=== PATIENT | male | born 1950 | race Caucasian/White ===

== ENCOUNTER → 2016-10-31 | Outpatient (CLI) | payer MEDICARE, OTHER ==
[~2016-10-31] MED LIST: AMLO5TAB2 PO; ASPI81TA2 PO; CITA20TA9 PO; DIPH25CA84 PO; IBUP200C62 PO; LORA-358 PO; METO25TA6 PO; PRAV40TA3 PO; ROPI1TAB12 PO
[2016-10-31 11:19] LABS: BASOPHILS # (AUTO) 0.1 T/MM3 (0-0.2); BASOPHILS % (AUTO) 0.8 % (0-2); EOSINOPHILS # (AUTO) 0.9 T/MM3 (0-0.5); EOSINOPHILS % (AUTO) 8.4 % (0-4); HCT - HEMATOCRIT 43.4 % (41-53); HGB - HEMOGLOBIN 14.6 GM/DL (13.5-17.5); IMMATURE GRANULOCYTE # (AUTO) 0.05 T/MM3 (0.00-0.03); IMMATURE GRANULOCYTE % (AUTO) 0.5 % (0.0-0.5); LYMPHOCYTES # (AUTO) 2.4 T/MM3 (1-4.8); LYMPHOCYTES % (AUTO) 22.9 % (23-45); MEAN CORPUSCULAR HGB 29.8 UUG (26-34); MEAN CORPUSCULAR HGB CONC(MCHC 33.6 GM/DL (31-37); MEAN CORPUSCULAR VOLUME 88.6 UM3 (80-100); MEAN PLATELET VOLUME 9.3 UM3 (9.4-12.4); MONOCYTES # (AUTO) 0.7 T/MM3 (0-0.8); MONOCYTES % (AUTO) 6.8 % (0-9.0); NEUTROPHILS #(AUTO)-ABSOLUTE 6.3 T/MM3 (1.8-7.7); NEUTROPHILS % (AUTO) 60.6 % (33-66); WBC - WHITE BLOOD COUNT 10.4 T/MM3 (4.5-11.0)
[2016-10-31 11:29] LABS: ALBUMIN 4.2 G/DL (3.5-5.0); ALBUMIN/GLOBULIN RATIO 1.4 RATIO (1.1-2.2); ALKALINE PHOSPHATASE 77 U/L (38-126); ALT (SGPT) 38 U/L (21-72); ANION GAP 11 MEQ/L (5-15); AST (SGOT) 27 U/L (17-59); BUN/CREATININE RATIO 31 RATIO (6-26); CALCIUM 9.5 MG/DL (8.4-10.2); CHLORIDE 104 MEQ/L (98-107); CO2 - CARBON DIOXIDE 30 MEQ/L (22-30); CREATININE 0.8 MG/DL (0.8-1.5); GLOMERULAR FILTRATION RATE 97; GLUCOSE 114 MG/DL (75-110); POTASSIUM 4.6 MEQ/L (3.6-5); SODIUM 145 MEQ/L (134-144); TOTAL PROTEIN 7.1 G/DL (6.3-8.2)
[2016-10-31 11:39] LABS: PROBNP 457 PG/ML (0-175)
== END ==
LOC: LAB 10:44
PROVIDERS: ATTEND Family Medicine
DX: R60.9 Edema, unspecified (principal); Z01.818 Encounter for other preprocedural examination
CPT/HCPCS: 36415; 80053; 83880; 85025

== ENCOUNTER → 2016-11-06 | Outpatient (CLI) | payer MEDICARE, OTHER ==
[~2016-11-06] MED LIST changes: +ACET-2321 PO; +ACET1TAB23 PO; +FURO-154 PO
[2016-11-06 13:30] LABS: ANION GAP 13 MEQ/L (5-15); BUN/CREATININE RATIO 26 RATIO (6-26); CALCIUM 9.8 MG/DL (8.4-10.2); CHLORIDE 102 MEQ/L (98-107); CO2 - CARBON DIOXIDE 29 MEQ/L (22-30); CREATININE 0.9 MG/DL (0.8-1.5); GLOMERULAR FILTRATION RATE 84; GLUCOSE 115 MG/DL (75-110); POTASSIUM 4.4 MEQ/L (3.6-5); SODIUM 144 MEQ/L (134-144)
--- NOTE | 2016-11-09 08:22 | ECHOF ---
DATE OF PROCEDURE: 11/06/2016 ECHOCARDIOGRAM 2-D, M-mode, color-flow and Doppler echocardiographic examinations are performed on this patient. The left atrium is normal in size. The left ventricle is mildly enlarged. The left ventricle including the septum moves appropriately during systole and diastole. Overall ejection fraction is 58%. The mitral valve opens appropriately and does not evidence stenosis or prolapse. There is calcific disease of the annulus noted. There is mild mitral regurgitation. The aortic valve is prosthetic. The mean gradient is 19. The peak gradient is 32. The tricuspid and pulmonic valves appear normal. There is moderate pulmonic insufficiency and moderate-plus tricuspid regurgitation. Pulmonary artery pressures are elevated at 52 mmHg. IVC is plethoric. The right atrium and right ventricle, including inflow and outflow tracts, show right atrial enlargement. The right ventricle is mildly enlarged. The aortic root appears normal. No vegetations are seen on any valve. No intracavitary masses or thrombi are noted. There is no pericardial effusion. CONCLUSION 1. Prosthetic aortic valve. Peak gradient 32, performing well. 2. Pulmonary hypertension, moderate at 52 mmHg. This is new. 3. Left ventricular enlargement with normal LV function at 58%. 4. Right atrial enlargement. 5. Moderate pulmonic insufficiency. 6. Moderate tricuspid regurgitation to moderate-plus. MTDD
== END ==
LOC: IMA 12:59
PROVIDERS: ATTEND Family Medicine
DX: I07.1 Rheumatic tricuspid insufficiency (principal); I27.2 Other secondary pulmonary hypertension; R60.9 Edema, unspecified; R60.0 Localized edema
CPT/HCPCS: 36415; 80048; 93306

== ENCOUNTER → 2016-11-08 | Outpatient (CLI) | payer MEDICARE, OTHER ==
[~2016-11-08] MED LIST changes: +ACET1TAB25 PO; +ASPI-917 PO; +IOHEXOL 350 MG/ML 75ml INJECTION ONE; +NORMAL SALINE 100 ML ONE; +POLY17PO18 PO; +SALINE FLUSH 10ml SYRINGE ONE
--- NOTE | 2016-11-08 16:07 | DI ---
Indication: ITS.REASON: I27.2 PULMONARY ARTERIAL HYPERTENSION PROCEDURE: CTA PULMONARY EMBOLI: Encounter: Initial Comparison: CT angiogram of the chest dated July 10, 2014 Technique: Axial CT pulmonary angiographic phase images were performed through the chest after the administration of intravenous contrast. Coronal and Sagittal MIP reconstructed images were created and reviewed. Automated Exposure Control and Iterative Reconstruction dose reducing techniques were utilized. Contrast: Omnipaque 350 62 mL Findings: Pulmonary arteries: Exam is diagnostic to the subsegmental pulmonary arterial level. No filling defects identified to suggest a pulmonary embolus. Borderline enlargement of the main pulmonary artery which is the same size as the adjacent aorta, would be compatible with the provided history of pulmonary arterial hypertension. Other findings: No consolidative pneumonia, pleural effusion or pneumothorax. No pulmonary masses. The central airways are patent. Metallic artifact from left sided thoracolumbar spinal fusion hardware. No axillary lymphadenopathy. Prior prominent prevascular and paratracheal lymph nodes have decreased in size from the comparison exam. No new or worsening lymphadenopathy. Prior CABG. Heart size is stable. No pericardial effusion. The upper abdomen shows no acute findings. Impression: No pulmonary embolus or acute intrathoracic disease process seen. .
== END ==
LOC: IMA 15:23
PROVIDERS: ATTEND Family Medicine
DX: I27.2 Other secondary pulmonary hypertension (principal)
CPT/HCPCS: 71275; J7050; Q9967

== ENCOUNTER 2016-11-14 05:26 | Inpatient (IN) | payer MEDICARE, OTHER ==
--- NOTE | 2016-10-10 14:00 | NUR ---
JOINT REPLACEMENT PREOP CLASS PATIENT ATTENDED JOINT REPLACEMENT PREOP CLASS. CASE MANAGEMENT CONTACT INFORMATION PROVIDED. EDUCATION WAS PROVIDED REGARDING WHAT TO EXPECT BEFORE, DURING AND AFTER SURGERY. INCLUDING: OVERVIEW OF ANATOMY AND PHYSIOLOGY HOSPITAL TREATMENT SCHEDULE THERAPY DEMONSTRATION CASE MANAGEMENT RESPONSIBILITIES DISCHARGE PLANNING EQUIPMENT NEEDS JOINT REPLACEMENT WORKBOOK ANTI-COAGULATION SURGERY STRONG NUTRITIONAL PROTOCOL DISCHARGE INSTRUCTIONS [facility] [place], WITH INSTRUCTIONS CJR AND PREOP SURVERY PREOP BATHING- CHG GIVEN ALL PATIENT'S QUESTIONS ANSWERED TO THEIR SATISFACTION. PATIENTS AND COACHES ENCOURAGED TO CALL WITH ANY ADDITIONAL QUESTIONS OR CONCERNS. CM FOLLOWING FOR TRANSITIONAL CARE PLANNING NEEDS DURING HOSPITALIZATION.
--- NOTE | 2016-10-23 11:05 | NUR ---
FACE TO FACE INTERVIEW WITH PATIENT. PMH, MEDS, ALLERGIES REVIEWED DOCUMENTED, INSTRUCTIONS GIVEN DOCUMENTED AND HANDOUTS IN THE FORM OF 'MEDS TO DC PRIOR TO SURGERY', CONSENT FOR JOINT REPLACEMENT, LETTER FROM DR GARCIA, INFORMATION FOR SHOWERING 4 DAYS BEFORE SURGERY, AND SURGERY/ANESTHESIA PAMPHLET GIVEN TO PATIENT. Sejal DEMPSEY'S CONTACT INFORMATION INCLUDED IF PATIENT HAS QUESTIONS. PT REQUESTS TO AVOID LORTAB POSTOP; HE HAD IT AFTER A PREVIOUS SURGERY AND GOT "HOOKED ON IT"
[~2016-11-14] VITALS: Ht 154.9 cm; Wt 80.5 kg
[2016-11-14] VITALS (30 sets, daily range): BP systolic 78–141; BP diastolic 46–83; PULSE 62–81; RESP 14–31; TEMP 97.2–98.3; O2SAT 91–96; Ht 154.9 cm; Wt 80.5 kg
[~2016-11-14 05:26] MED LIST changes: -ACET-2321 PO; -ACET1TAB23 PO; -ACET1TAB25 PO; -ASPI-917 PO; -IOHEXOL 350 MG/ML 75ml INJECTION ONE; -NORMAL SALINE 100 ML ONE; -POLY17PO18 PO; -SALINE FLUSH 10ml SYRINGE ONE
--- OUTSIDE RECORDS SUMMARY | 2016-11-14 05:30 | XMS REPORT | Continuity of Care Document ---
Author Author [facility] Organization [facility] Address Unknown Phone Unavailable Allergies Active Description Code Type Severity Reaction Onset Reported/Identified Relationship to Patient Clinical Status Yes SUMAtriptan NKMA N/A N/A 12/03/2013 Yes ZOLMitriptan NKMA N/A N/A 12/03/2013 Medications Problems Procedures Results Encounters ACCT No. Visit Date/Time Discharge Status Pt. Type Provider Facility Loc./Unit Complaint [id number] 11/05/2013 14:32:00 11/05/2013 23 :59:59 CLS Outpatient
--- OUTSIDE RECORDS SUMMARY | 2016-11-14 05:30 | XMS REPORT ---
Author Leila Rodriguez Organization [employer] Address Unknown Phone Unavailable Care Team Providers Care Restorative Art Embalmer Name Role Phone Leila Holt CP Unavailable Allergies, Adverse Reactions, Alerts Substance Reaction Event Type N.K.D.A. Info Not Available Non Drug Allergy Problems Problem Type Condition Code Onset Dates Condition Status Assessment Cough R05 Active Assessment Upper respiratory tract infection, unspecified type J06.9 Active Assessment Bronchitis J40 Active Medications Medication Code System Code Instructions Start Date End Date Status Dosage Tussionex Pennkinetic ER [facility] [address]-85 10-8 MG/5ML Orally at bedtime Jun 23, 2016 Jun 28, 2016 5 ml as needed Citalopram Hydrobromide [facility] [address]-04 20 MG Orally Once a day 1 tablet Metoprolol Tartrate [facility] [address]-35 25 MG Orally Twice a day 1 tablet Pravastatin Sodium [facility] [address]-71 40 MG Orally Once a day 1 tablet Amlodipine Besylate [facility] [address]-55 5 MG Orally Once a day 1 tablet PredniSONE [facility] [address]-83 20 MG Orally Once a day Jun 23, 2016 Jul 02, 2016 3 tablets daily for 3 days, 2 tablets daily for 3 days, 1 tablet daily for 3 days with food Zithromax Z-Nick [facility] [address]-12 250 MG Orally Once a day Jun 23, 2016 Jun 28, 2016 2 tablets on the first day, then 1 tablet daily for 4 days Procedures Procedure Coding System Code Date OFFICE VISIT, GOVERNMENT AFFAIRS SPECIALIST-LOW COMPLEXITY (30 MIN.) CPT-4 22973 Jun 23, 2016 ON LICENSE OF [facility] visit New Patient CPT-4 G0466 Jun 23, 2016 Vital Signs Date/Time: Jun 23, 2016 Temperature 99.9 F Height 61.50 in Weight 173.8 lbs Blood Pressure Diastolic 62 mm Hg Blood Pressure Systolic 132 mm Hg Cardiac Monitoring Heart Rate 89 /min BMI 32.30 Index Oximetry 94 % Results No Known Results Summary Purpose [employer] Submission
[2016-11-14] MEDS ORDERED: METOCLOPRAMIDE 10mg/2ml INJECTION IV ONE (06:00)
[2016-11-14] MEDS ORDERED: FAMOTIDINE 20mg IVPB 50 ML IV ONE (06:00)
[2016-11-14] MEDS ORDERED: LIDOCAINE 1% (10mg/ml) 2ml SDV SQ ONE (06:00)
[2016-11-14] MEDS ORDERED: MELOXICAM 15 MG TABLET PO ONE (06:00)
[2016-11-14] MEDS ORDERED: ACET-2321 PO (06:07)
[2016-11-14] MEDS ORDERED: ACET1TAB23 PO (06:08)
[2016-11-14 06:19] LABS: ANION GAP 15 MEQ/L (5-15); BUN/CREATININE RATIO 31 RATIO (6-26); CALCIUM 9.7 MG/DL (8.4-10.2); CHLORIDE 108 MEQ/L (98-107); CO2 - CARBON DIOXIDE 23 MEQ/L (22-30); CREATININE 0.9 MG/DL (0.8-1.5); GLOMERULAR FILTRATION RATE 84; GLUCOSE 124 MG/DL (75-110); POTASSIUM 4.3 MEQ/L (3.6-5); SODIUM 146 MEQ/L (134-144)
[2016-11-14] MEDS ORDERED: VANCOMYCIN 1 GRAM INJECTION ONE (06:51)
--- NOTE | 2016-11-14 06:54 | ANESPREOP ---
Anesthesia Record Date and Time DATE: 11/14/16 TIME: 06:52 Pre-Op Diagnosis Right knee degeneration Proposed Surgical Procedure RIGHT TOTAL KNEE REPLACEMENT NPO since: Midnight Allergies: Coded Allergies: No Known Allergies (Unverified , 11/14/16) Ht/Wt/BMI Height: 5 ' 1.00 " Weight: 80.600 kg BMI: 33.6 kg/m2 Vital Signs Date Time Temp Pulse Resp B/P Pulse Ox O2 Delivery O2 Flow Rate FiO2 11/14/16 05:45 98.0 81 15 141/77 92 Room Air Medications Inpatient Medications Current Medications Medications (Trade) Dose Ordered Sig/Jacqueline Start Time Stop Time Status Last Admin Dose Admin Lactated Ringer's (Lactated Ringers) 1,000 ml @ 50 mls/hr Q20H 11/14/16 07:00 11/14/16 06:15 50 MLS/HR Acetaminophen (Tylenol) 325 Mg Tablet, 1-2 TAB PO QID, (Reported) Last Taken: on 11/13/16 1400 Acetaminophen with Codeine (Acetaminophen-Cod # 2 Tablet) 1 Each Tablet, 1 TAB PO for PAIN, (Reported) Last Taken: on 11/13/16 2300 Amlodipine Besylate (Amlodipine Besylate) 5 Mg Tablet, 5 MG PO BID, (Reported) Last Taken: on 11/14/16 0430 Aspirin (Aspirin) 81 Mg Tab.chew, 1 TAB PO DAILY, (Reported) Last Taken: on 11/13/16 0800 Citalopram Hydrobromide (Citalopram HBr) 20 Mg Tablet, 20 MG PO DAILY, (Reported) Last Taken: on 11/13/16 2300 Diphenhydramine HCl (Benadryl) 25 Mg Capsule, 2 CAP PO HS, (Reported) Last Taken: on 11/13/16 2300 Furosemide (Lasix) 20 Mg Tablet, 1 TAB PO DAILY , (Reported) Last Taken: on 11/13/16 0800 Ibuprofen (Ibuprofen) 200 Mg Capsule, 2 CAP PO Q4H PRN for PAIN, (Reported) Last Taken: on 10/30/16 Loratadine (Loratadine) 10 Mg Tablet, 10 MG PO DAILY, (Reported) Last Taken: on 11/13/16 0800 Metoprolol Tartrate (Metoprolol Tartrate) 25 Mg Tablet, 0.5 MG PO BIDWM, (Reported) Last Taken: on 11/14/16 0430 Pravastatin Sodium (Pravastatin Sodium) 40 Mg Tablet, 40 MG PO HS, (Reported) Take 1 tablet, by mouth, daily at bedtime. Last Taken: on 11/13/16 2300 Ropinirole HCl (Ropinirole HCl) 1 Mg Tablet, 1 MG PO HS, (Reported) Take 1 tablet, by mouth, 1 time a day (at BEDTIME). Last Taken: on 11/14/16 0245 Currently on Beta Terese: Yes Beta Terese Last Taken: 11/14/16 043 Medical/Surgical History Anesthesia PMH: Reports: *Dyspnea (ON EXERTION), *Hypertension, *NE (PT WAS TOLD HE'S HAD A NE; DOESN'T KNOW WHEN), Arthritis (RT KNEE), Back Problems, CHF (PER H&P), Depression, Headaches, Hiatal Hernia (HX OF), Hyperlipidemia, Reflux , Denies: *Angina, *Diabetes, Anesthesia Reactions (NO KNOWN AIRWAY ISSUES), Cancer, Clotting Problems, Glaucoma, Malignant Hyperthermia, Renal Disease, Sleep Apnea, Thyroid Disease Smoking Status: Former smoker Has pt. smoked today?: No Use Chewing Tobacco?: No Second Hand Exposure: No Quit Date: Aug 06, 1989 Substance Use Type: does not use Alcohol Intake: a few times a week Past Surgical History Orthopedic Surgeries: Yes - T12 VERTABRAE REPLACED/GREAT TOE SURGERY LEFT Abdominal Surgeries: Yes - RIGHT INGUINAL HERNIA REPAIR 1979 Genitourinary Surgeries: Cardiac Surgeries: Yes - CABG X1 ; AORTIC VALVE (TISSUE) REPLACED;MV FIXED; CARDIAC ABLATION Endocrine Surgeries: Reproductive Surgeries: Neurological Surgeries: Yes - replaced the T12 vertebrae- 2004 Ear Surgeries: Nose Surgeries: Throat Surgeries: Yes - T & A Other Surgeries: Yes Anesthesia Adverse Reactions: FOUND none Family Hx of Anesthesia Advers: none Pertinent Findings Laboratory Tests 11/14/16 05:53 EKG Rhythm: Sinus Rhythm Physical Exam Respiratory: Lungs clear Cardiovascular: FOUND Regular rate, rhythm Airway Assessment Mallampati Score: II TMD: 3 Fingerbreadths Neck Extension: Good Overall Assessment: May Be Diff Intubation ASA: 3 Plan Regional: Spinal Discussion Discussed risks/options/alternatives of anesthesia and questions answered. Patient consents. Nursing pain assessment noted. Present: Family Member Attestation Statement Prior to the delivery of any anesthetic medication, I examined the patient, developed the plan, obtained the patient's consent and discussed the risk and benefits of the procedure with the patient/guardian. PRAMOD SILVESTRE COMMUNITY RELATIONS ASSISTANT Nov 14, 2016 06:54
[2016-11-14] MEDS ORDERED: ONDANSETRON 4mg/2ml INJECTION IV ONE (07:00)
[2016-11-14] MEDS ORDERED: NOZIN NASAL SWAB NS ONE ×2 (07:00→10:00)
[2016-11-14] MEDS ORDERED: LR 1,000 ML IV SCH (07:00)
[2016-11-14] MEDS ORDERED: DEXAMETHASONE 4mg/ml - 1ml INJECTION IV ONE (07:00)
[2016-11-14] MEDS ORDERED: ACETAMINOPHEN 500 MG TABLET PO ONE (07:00)
[2016-11-14] MEDS ORDERED: PROPOFOL 200mg 20 ML IV ONE ×2 (07:08→09:14)
[2016-11-14] MEDS ORDERED: MIDAZOLAM 2mg/2ml INJECTION ONE (07:08)
[2016-11-14] MEDS ORDERED: PROPOFOL 500mg 50 ML IV ONE ×2 (07:08→08:18)
[2016-11-14] MEDS ORDERED: EPHEDRINE SULFATE 50mg/ml INJECTION ONE (07:29)
[2016-11-14] MEDS ORDERED: CEFAZOLIN 2 GM VIAL IV ONE (07:30)
[2016-11-14] MEDS ORDERED: ROPIVACAINE 0.5% (5mg/ml) 30ml INJ ONE (07:45)
[2016-11-14] MEDS ORDERED: EPINEPHRINE 0.25 MG, BUPIVACAINE 0.25% 75 MG, MORPHINE SULFATE 15 MG, KETOROLAC 60 MG i... INJ ONE ×5 (08:30)
[2016-11-14] MEDS ORDERED: TRANEXAMIC ACID 1000 MG/10 ML TOP ONE (08:30)
[2016-11-14] MEDS ORDERED: ONDANSETRON 4mg/2ml INJECTION IV PRN (10:00)
[2016-11-14] MEDS ORDERED: DiphenhydrAMINE 50 MG/ML INJECTION IV PRN (10:00)
[2016-11-14] MEDS ORDERED: METOCLOPRAMIDE 10mg/2ml INJECTION IV PRN (10:00)
[2016-11-14] MEDS ORDERED: DiphenhydrAMINE 25 MG CAPSULE PO PRN (10:00)
[2016-11-14] MEDS ORDERED: SENNOSIDES 8.6 MG TABLET PO PRN (10:00)
[2016-11-14] MEDS ORDERED: IBUPROFEN 200 MG TABLET PO PRN (10:00)
[2016-11-14] MEDS ORDERED: PRN ORDERS MC (10:00)
[2016-11-14] MEDS ORDERED: LORAZEPAM 1 MG TABLET PO PRN (10:00)
--- NOTE | 2016-11-14 10:08 | ANESPD ---
Peripheral Nerve Blockade Physician: Justice Chisholm MD Date: 11/14/16 Surgical Procedure: Right total knee Discussion Discussed risks/options/alternatives of anesthesia and questions answered. Patient consents. Nursing pain assessment noted. Block Start: 10:00 Block Stop: 10:02 Block Employed: Adductor Canal, Single Injection Indication: post-operative pain Approach: right side confirmed Position: supine Patient: Consent Monitors: EKG, SpO2, NIBP IV Sedation: No Sedation: Awake Initial Vital Signs First Documented Vital Signs Date Time Temp Pulse Resp B/P Pulse Ox O2 Delivery O2 Flow Rate FiO2 11/14/16 05:45 98.0 81 15 141/77 92 Room Air Post Vital Signs Vital Signs Date Time Temp Pulse Resp B/P Pulse Ox O2 Delivery O2 Flow Rate FiO2 11/14/16 05:45 98.0 81 15 141/77 92 Room Air Initial Pain Score: 0 Post Block Score: 0 Prep: chlorhexadine/ETOH Ultrasound Used?: Yes Nerve Simulator Needle Depth: 3 Injectate Ropivacaine (%): 0.5 Ropivacaine (mL): 25 Was Epi 1:200,000 Used?: No Injection Injection made incrementally with constant monitoring and aspiration every 5ml. PRAMOD SILVESTRE CRNA Nov 14, 2016 10:08
[2016-11-14] MEDS: NORMAL SALINE 1,000 ML IV SCH ×2 (10:21→20:31)
--- NOTE | 2016-11-14 10:27 | DI ---
Indication: ITS.REASON: POSTOP right knee replacement PROCEDURE: KNEE RIGHT 2 VIEW: Encounter: Initial Comparison: Right knee radiographs dated March 24, 2014 Findings: Postoperative changes of right total knee replacement are seen. There is expected postoperative subcutaneous gas. No evidence of hardware failure or acute fracture. No retained radiopaque surgical instruments or sponges. Overlying material and brace causing artifact. Impression: New right total knee prosthesis without evidence of immediate complication. .
--- NOTE | 2016-11-14 11:00 | NUR ---
PT ARRIVAL FROM SURGERY UPDATE PT ARRIVES FROM R KNEE REPLACEMENT SURGERY AT THIS TIME. PT IS A&OX3, RESP RATE IS EVEN AND NON LABORED, PT WEARING 2L OF NC. SKIN W/D/P. PT HAS LONG BRACE TO R LEG WELL POLAR PAC. PT IS ADVISED TO USE CALL LIGHT IF NEEDING TO GET UP. PT RATES HIS PAIN A 3/10. PT IS ORIENTED TO HIS ROOM AND SHOWN HOW TO USE CALL LIGHT, PTS AT BEDSIDE. PT EDUCATED ON DIET. DENIES ANY OTHER COMPLAINTS AT THIS TIME. WILL CONTINUE TO MONITOR.
--- NOTE | 2016-11-14 11:15 | PDOPERATE ---
Operative Report Date of Operation 11/14/16 Side: Right Preoperative Diagnosis: knee primary DJD Postoperative Diagnosis Same as preoperative diagnosis. Operation/Procedure: total knee arthroplasty (right) Surgeon Kaden Chisholm MD Manager Package JAYLA Crarillo Complications None. Regional Block: Spinal Estimated Blood Loss See Anesthesia Record. Fluids Please See Anesthesia Record. Description of Operation Mr. Shankar and his right knee were identified and marked in the the preoperative holding area. He was then brought back to the operating suite and proper anesthesia was administered. He was then positioned supine on the operating table. The right lower extremity was then prepped and draped in my normal sterile fashion. Timeout was performed with all operating room personnel. The leg was exsanguinated and tourniquet inflated 250 mmHg. A standard anterior incision followed by a medial parapatellar approach was utilized. He had severe disease in medial compartment and lesser so of the patellofemoral compartment. A distal femoral cut was made in 5 of valgus using intramedullary guide. The femur was sized at a 4 and rotation set using the epicondylar axis. Distal femoral cuts were performed. The tourniquet was then let down. A proximal tibial cut was made using extramedullary guide. Remaining osteophytes and meniscus were removed. Gaps were checked and he had increased widening medially in flexion. It was then noticed that his MCL had appeared to pull off of the tibia. There are no signs of sawblade damage and no clean cut through the MCL itself. Then cut for a PS femur. Trial components were placed with a 9 mm spacer. This allowed for full range of motion and the patella tracked well. The patella was resurfaced with the knee in extension to a size 29. The tibia rotation was then marked and the tibia stamped at the proper rotation at a size 3. The bone was prepared for cementing and all components cemented into place and allowed to cure in extension. Betadine solution was used for 3 minutes during the curing period and then fully irrigated out with 1 L of normal saline. 1 g of TXA was left in the wound for 5 minutes. I then repaired the MCL back to the medial capsule with #1 Ethibond I then reinforced this with #5 Ethibond. A final 9 mm TS spacer was placed. This still allowed for full motion and was nice and stable throughout range of motion. Vancomycin powder was placed into the wound. The arthrotomy was closed with #1 Vicryl. The remainder of the wound was then closed by my electrical assistant utilizing 2-0 vycral in the subcutaneous tissue. 4-0 monocryl was used in the subcuticular layer followed by dermabond and a sterile dressing. After closure the patient will be transferred to the recovery room under the care of anesthesia. NONA CHISHOLM MD Nov 14, 2016 11:15
--- NOTE | 2016-11-14 11:31 | ANESPO ---
Post-Op Note Date 11/14/16 Time: 11:05 Status Pt Participated in Evaluation: Pt participated in person Vital Signs Date Time Temp Pulse Resp B/P Pulse Ox O2 Delivery O2 Flow Rate FiO2 11/14/16 10:57 97.2 11/14/16 10:55 65 20 104/64 93 Nasal Cannula 2.00 Cardiovascular Function: Regular pulse Telemetry Pattern: SR Mental Status: Alert/oriented Pain Level Intensity: 0 Hydration: IV infusing Complications during Recovery None apparent Follow-Up Instructions Instructions Per Surgeon PRAMOD SILVESTRE CRNA Nov 14, 2016 11:31
--- NOTE | 2016-11-14 13:40 | NUR ---
UPDATE PT WAS ABLE TO WALK WITH PHYSICAL THERAPIST, WITH SLOW STEADY GAIT AND THE USAGE OF A WALKER. PT REPORTS HIS PAIN HAS INCREASED AND HIS RESTLESS LEG SYNDROME IS STARTING TO BOTHER HIM. WILL TREAT PTS PAIN WITH PRN ORDERS AND WILL CHECK FOR SCHEDULED MEDICATIONS TO TREAT RESTLESS LEG SYNDROME. PT WAS ABLE TO TOLERATE A CLEAR LIQUID DIET. WILL BE PLACING AN ORDER TO ADVANCE PTS DIET.
[2016-11-14] MEDS: ACETAMINOPHEN/CODEINE 300mg/30mg TABLET PO PRN ×3 (13:46→22:37)
[2016-11-14] MEDS: NOZIN NASAL SWAB NS SCH ×2 (14:42→21:39)
[2016-11-14] MEDS: CEFAZOLIN 2 G in NORMAL SALINE 100 ML IV SCH ×2 (16:22→21:34)
--- NOTE | 2016-11-14 18:35 | NUR ---
UPDATE PT HAS AMBULATED TWICE TODAY WITH A WALKER AND A STAND BY. PT SAYS PAIN IS THE SAME THAT HE HAD BEFORE SURGERY, PT HAS BEEN MEDICATED TWICE WITH TYLENOL WITH CODEINE. PT REPORTED RELIEF BOTH TIMES. PT HAS TOLERATED A REGULAR DIET. HE WAS WEANED OFF THE OXYGEN DURING THE AFTERNOON AND IS NOW SATTING >92% IN RA.
[2016-11-14] MEDS: ASPIRIN *EC* 325mg TABLET PO SCH (21:34)
[2016-11-14] MEDS: AMLODIPINE 5 MG TABLET PO SCH (21:35)
[2016-11-14] MEDS ORDERED: SENNOSIDES 8.6 MG TABLET PO SCH (22:00)
[2016-11-14] MEDS ORDERED: ROPINIROLE 1 MG TABLET PO SCH (22:00)
[2016-11-14] MEDS ORDERED: PRAVASTATIN 40 MG TABLET PO SCH (22:00)
[2016-11-15 00:02] VITALS: BP 135/83; PULSE 79; RESP 17; TEMP 96.5; O2SAT 96
[2016-11-15] MEDS ORDERED: ROPINIROLE 1 MG TABLET PO ONE (00:15)
[2016-11-15 01:00] VITALS: O2SAT 94
[2016-11-15] MEDS: ACETAMINOPHEN/CODEINE 300mg/30mg TABLET PO PRN ×3 (02:00→12:24)
[2016-11-15 03:00] VITALS: O2SAT 90
[2016-11-15 04:00] VITALS: BP 119/77; PULSE 58; RESP 14; TEMP 97.1; O2SAT 94
[2016-11-15 05:23] LABS: HGB - HEMOGLOBIN 11.8 GM/DL (13.5-17.5); MEAN CORPUSCULAR HGB 29.2 UUG (26-34); MEAN CORPUSCULAR HGB CONC(MCHC 32.8 GM/DL (31-37); MEAN CORPUSCULAR VOLUME 89.1 UM3 (80-100); MEAN PLATELET VOLUME 10.4 UM3 (9.4-12.4); RED BLOOD COUNT 4.04 M/MM3 (4.50-5.90); WBC - WHITE BLOOD COUNT 17.2 T/MM3 (4.5-11.0)
[2016-11-15 05:27] LABS: ANION GAP 11 MEQ/L (5-15); BUN/CREATININE RATIO 26 RATIO (6-26); CALCIUM 9.4 MG/DL (8.4-10.2); CHLORIDE 104 MEQ/L (98-107); CO2 - CARBON DIOXIDE 26 MEQ/L (22-30); CREATININE 0.7 MG/DL (0.8-1.5); GLOMERULAR FILTRATION RATE 113; GLUCOSE 129 MG/DL (75-110); POTASSIUM 4.7 MEQ/L (3.6-5); SODIUM 141 MEQ/L (134-144)
--- NOTE | 2016-11-15 06:15 | NUR ---
END OF SHIFT SUMMARY: Alert and orientated. Ambulates in hallway with use of walker, gait belt and stand by assistance last evening and this morning. Order recieved for extra REQUIP due to restless legs. TYLENOL #3 given for pain. Pt. sleeps at intervals through out the night. Continuous oximetry. NS infuses at 80 cc/hr. Good urine output. Polar pack used during the night to right knee. C/O of discomfort from strap to black brace rubbing on his skin. Guaze pad placed to avoid strap from rubbing on skin.
[2016-11-15] MEDS ORDERED: LORATADINE 10 MG TABLET PO SCH (06:30)
--- NOTE | 2016-11-15 07:00 | NUR ---
BEGINNING OF SHIFT PT IS AWAKE. A&OX3. PT ALREADY ORDERED BREAKFAST, RATING HIS PAIN A 6/10 TO HIS R KNEE. PT DENIES ANY OTHER COMPLAINTS AT THIS TIME. BRACE IS STILL IN PLACE. SWELLING NOTED R KNEE AND LOWER LEG, R PEDAL PULSE 2+.
[2016-11-15] MEDS: NOZIN NASAL SWAB NS SCH (07:41)
[2016-11-15 08:00] VITALS: BP 138/87; PULSE 80; RESP 16; TEMP 98; O2SAT 97
--- NOTE | 2016-11-15 08:13 | PDORTHOPN ---
Subjective Date DATE: 11/15/16 TIME: 08:05 Subjective Isidro is doing very well. He has been mobile with good tolerance. The brace was causing a little soreness on the lateral calf but no numbness is present. Denies CP, cough or feeling SOA. He had some restless leg complaints last night but that has resolved. No other concerns. Objective Vital Signs Vital signs Vital Signs 11/14/16 11/14/16 11/14/16 11/15/16 22:00 22:02 22:57 00:02 Temp 96.5 Pulse 70 85 79 Resp 18 18 17 B/P 135/83 Pulse Ox 95 94 96 O2 Delivery Nasal Cannula Room Air Room Air Room Air O2 Flow Rate 2.00 11/15/16 11/15/16 11/15/16 01:00 03:00 04:00 Temp 97.1 Pulse 76 52 58 Resp 18 18 14 B/P 119/77 Pulse Ox 94 90 94 O2 Delivery Room Air Room Air Room Air Height (Feet): 5 Height (Inches): 1.00 Weight (Kilograms): 80.600 General General Appearance: Alert, Well Developed, No Acute Distress Respiratory (Brief) Respiratory Brief: FOUND: non-labored Cardiovascular (Brief) Cardiac: FOUND: calf easily compressible, calf soft, nontender, pedal pulses intact Surgical Site Incision: FOUND: Mepilex dressing intact, no drainage Integumentary (Brief) Integumentary Brief: FOUND dry, FOUND other (Indention in skin from a fold in the brace padding. No comprimise of the skin is present.), FOUND pink, FOUND warm, NOT FOUND brusing, NOT FOUND erythemia Neurologic (Brief) Neurological Brief: FOUND: extremities w/o deficits, neuro intact Psychiatric (Brief) Psychiatric Brief: FOUND: alert, no acute distress Laboratory Laboratory Laboratory Tests 11/15/16 04:21 Laboratory Tests 11/14/16 05:53 11/15/16 04:21 Assessment & Plan Problems: (1) Degenerative arthritis of right knee Status: Chronic Qualifiers: Osteoarthritis type: primary Qualified Codes: M17.11 - Unilateral primary osteoarthritis, right knee Assessment & Plan: Aspirin protocol for VTE prophylaxis. Brace to knee x 6-8 weeks to protect MCL injury. ROM and Wt bearing are unrestricted with the brace on. SCD's and early mobilization for added DVT protection. PT/OT services to improve independent function. Discharge Planning per Case Management. (2) Leukocytosis Status: Acute Qualifiers: Leukocytosis type: other Qualified Codes: D72.828 - Other elevated white blood cell count Assessment & Plan: x Pt is afebrile and has no clinical s/sx of infection. Leukocytosis is likely due to francisco operative steroids and surgical stress. Will monitor and check labs / UA / CXR if indicated. (3) Hypertension Status: Chronic (4) Hyperlipemia Status: Chronic (5) Restless leg syndrome Status: Chronic (6) Risk factors for obstructive sleep apnea Status: Chronic Hospital Course Summary Disclaimer The visit summary below is not to be considered part of the above Progress Note. CORETTA WALKER Nov 15, 2016 08:09
[2016-11-15] MEDS: AMLODIPINE 5 MG TABLET PO SCH (08:29)
[2016-11-15] MEDS: ASPIRIN *EC* 325mg TABLET PO SCH (08:29)
[2016-11-15] MEDS ORDERED: FUROSEMIDE 20 MG TABLET PO SCH (09:00)
[2016-11-15] MEDS ORDERED: POLYETHYL.GLYCOL 3350 PACKET 17gm PO SCH (09:00)
[2016-11-15] MEDS ORDERED: DOCUSATE SODIUM 100 MG CAPSULE PO SCH (09:00)
[2016-11-15] MEDS: NORMAL SALINE 1,000 ML IV SCH (10:56)
--- NOTE | 2016-11-15 11:14 | NUR ---
CM CM IN TO VISIT WITH PT. HE IS ALERT AND ORIENTED. HE PLANS TO DC HOME. HE WILL DO OUTPT PT AT [facility]. HE DOES NOT HAVE FWW. HE IS PRESENTED WITH OPTION TO BUY OR BORROW. PT OPTS TO BORROW FWW FROM [facility]. HE IS GIVEN CONTACT INFORMATION FOR [facility] AND CM. LACE SCORE IS 6. Addendum: 11/15/16 at 1116 by JANETH COLLAZO RN Amended: Links added.
--- NOTE | 2016-11-15 11:45 | NUR ---
UPDATE PT BACK FROM PHYSICAL THERAPY AT THIS TIME. PT IS USED THE RESTROOM, PT IS CONNECTED BACK TO IV FLUIDS.
[2016-11-15 12:00] VITALS: BP 129/82; PULSE 72; RESP 16; TEMP 97.6; O2SAT 97
[2016-11-15] MEDS ORDERED: ACET1TAB25 PO (13:12)
[2016-11-15] MEDS ORDERED: ASPI-917 PO (13:12)
[2016-11-15] MEDS ORDERED: POLY17PO18 PO (13:12)
--- NOTE | 2016-11-15 13:32 | DSPDOC ---
General Date Date DATE: 11/15/16 TIME: 13:26 Attending Physician Justice Chisholm MD Admitting Physician Justice Chisholm MD Consulting Physician Admitting Diagnosis PRIMARY DEGENERATIVE JOINT DISEASE RIGHT KNEE Discharge Diagnosis Primary DJD right knee Procedures Right total knee arthroplasty Diagnosis Right knee primary DJD History of Present Illness HPI Elements This patient was admitted for elective surgical tx of end stage degenerative joint disease that failed to respond to conservative treatment. Further details of this is found in the admission H&P. Hospital Course After appropriate preoperative clearance and signing of operative consent, the patient was given IV antibiotics, according to orthopedic protocol. The patient was taken to the operating room and underwent elective joint arthroplasty. Following surgery, antibiotics were discontinued less than 24 hours according to joint protocol. Appropriate anticoagulants were initiated and SCDs added for DVT prevention. The dressing was clean, dry, and intact. Pain control was obtained via multimodal approach. Bowel motivation addressed with scheduled and PRN medications. Early mobilization was initiated through PT services. Discharge arrangements made by a collaborative effort between the patient and Case Management. The patient was discharged with a knee brace to protect his MCL. Follow-up is scheduled in 2-3 weeks. Discharge instructions given by orthopedic providers and nursing staff at discharge. Discharge condition was good. Problems: (1) Degenerative arthritis of right knee Status: Chronic Assessment & Plan: Aspirin protocol for VTE prophylaxis. Brace to knee x 6-8 weeks to protect MCL injury. ROM and Wt bearing are unrestricted with the brace on. SCD's and early mobilization for added DVT protection. PT/OT services to improve independent function. Discharge Planning per Case Management. (2) Leukocytosis Status: Acute Assessment & Plan: x Pt is afebrile and has no clinical s/sx of infection. Leukocytosis is likely due to francisco operative steroids and surgical stress. Will monitor and check labs / UA / CXR if indicated. (3) Hypertension Status: Chronic (4) Hyperlipemia Status: Chronic (5) Restless leg syndrome Status: Chronic (6) Risk factors for obstructive sleep apnea Status: Chronic Associated Postoperative Event: Acute P.O. Anemia Ongoing Care Required?: No Acute P.O. Anemia: Patient received IVF, No intervention required, HGB drop- acceptable range Leukocytosis: d/t IV Decadron preop, d/t surg. stress response Laboratory Laboratory Tests Test 11/15/16 04:21 White Blood Count 17.2T/MM3 Red Blood Count 4.04M/MM3 Hemoglobin 11.8GM/DL Hematocrit 36.0% Mean Corpuscular Volume 89.1UM3 Mean Corpuscular Hemoglobin 29.2UUG Mean Corpuscular Hemoglobin Concent 32.8GM/DL RDW Standard Deviation 44.4FL Platelet Count 203T/MM3 Mean Platelet Volume 10.4UM3 Turbidity < 20 Sodium Level 141MEQ/L Potassium Level 4.7MEQ/L Chloride Level 104MEQ/L Carbon Dioxide Level 26MEQ/L Anion Gap 11MEQ/L Blood Urea Nitrogen 18.0MG/DL Creatinine 0.7MG/DL Glomerular Filtration Rate Calc 113 BUN/Creatinine Ratio 26RATIO Glucose Level 129MG/DL Calculated Osmolality 275MOSM/KG Calcium Level 9.4MG/DL Icterus Index < 2 Chemistry Specimen Hemolysis < 15 Home Meds Active Scripts Polyethylene Glycol 3350 (Healthylax) 17 Gm Powd.pack, 17 G PO DAILY, #30 PACKET Prov:FABIOLA SMITH 11/15/16 Acetaminophen with Codeine (Acetaminophen-Cod #3 Tablet) 300-30 Tablet, 1-2 TAB PO Q4H Y for PAIN, #60 TAB Prov:FABIOLA SMITH 11/15/16 Aspirin *EC* (Aspirin EC) 325 Mg Tablet.dr, 325 MG PO BID, #84 TAB Prov:FABIOLA SMITH 11/15/16 Reported Medications Acetaminophen (Tylenol) 325 Mg Tablet, 1-2 TAB PO QID, #60 TAB 2 Refills 11/14/16 Furosemide (Lasix) 20 Mg Tablet, 1 TAB PO DAILY, TAB 11/13/16 Diphenhydramine HCl (Benadryl) 25 Mg Capsule, 2 CAP PO HS, #60 CAP 2 Refills 10/23/16 Ibuprofen (Ibuprofen) 200 Mg Capsule, 2 CAP PO Q4H Y for PAIN, CAP 10/23/16 Ropinirole HCl (Ropinirole HCl) 1 Mg Tablet, 1 MG PO HS, TAB Take 1 tablet, by mouth, 1 time a day (at BEDTIME). 10/23/16 Citalopram Hydrobromide (Citalopram HBr) 20 Mg Tablet, 20 MG PO DAILY 10/23/16 Pravastatin Sodium (Pravastatin Sodium) 40 Mg Tablet, 40 MG PO HS, TAB Take 1 tablet, by mouth, daily at bedtime. 06/27/16 Metoprolol Tartrate (Metoprolol Tartrate) 25 Mg Tablet, 0.5 MG PO BIDWM, TAB 06/27/16 Amlodipine Besylate (Amlodipine Besylate) 5 Mg Tablet, 5 MG PO BID, TAB 06/27/16 Loratadine (Loratadine) 10 Mg Tablet, 10 MG PO DAILY 12/26/11 Discontinued Reported Medications Acetaminophen with Codeine (Acetaminophen-Cod #2 Tablet) 1 Each Tablet, 1 TAB PO Y for PAIN, TAB 11/14/16 Aspirin (Aspirin) 81 Mg Tab.chew, 1 TAB PO DAILY, #30 TAB 3 Refills 10/23/16 Discharge Disposition Please refer to Case Management Notes for patient's disposition. Estimated Blood Loss FABIOLA SMITH Nov 15, 2016 13:30
--- NOTE | 2016-11-15 14:15 | NUR ---
DISMISSAL UPDATE PT AND GIVEN DISMISSAL INSTRUCTIONS, THEY BOTH STATE UNDERSTANDING. PT ACCOMPANIED TO THE FRONT, PT USED WALKER, WITH STEADY GAIT. PT ASSISTED TO CAR. ALL BELONGINGS WITH PT.
[2016-11-16] MEDS ORDERED: MILK OF MAGNESIA 30 ML SUSP PO SCH (08:00)
[2016-11-16] MEDS ORDERED: BISACODYL 10 MG SUPPOSITORY RECTALLY SCH (20:00)
== END 2016-11-15 14:15 | disposition home or self-care (01) | DRG 470 ==
LOC: SRG 05:26
PROVIDERS: ADMIT Orthopaedic Surgery; ATTEND Orthopaedic Surgery
PROC: 0SRC0J9 Replacement of Right Knee Joint with Synthetic Substitute, Cemented, Open Approach (ICD-10-PCS; principal; 2016-11-14 07:42)
DX: M17.11 Unilateral primary osteoarthritis, right knee (principal); D64.9 Anemia, unspecified; D72.829 Elevated white blood cell count, unspecified; G25.81 Restless legs syndrome; I10 Essential (primary) hypertension; E78.4 Other hyperlipidemia; Z95.2 Presence of prosthetic heart valve; K21.9 Gastro-esophageal reflux disease without esophagitis; Z87.891 Personal history of nicotine dependence; I50.9 Heart failure, unspecified; I25.2 Old myocardial infarction; F32.9 Major depressive disorder, single episode, unspecified; Z87.11 Personal history of peptic ulcer disease
CPT/HCPCS: 36415; 80048; 85027; 94762